=== PATIENT | male | born 1965 | race Caucasian/White ===

== ENCOUNTER 2022-05-04 12:27 | Inpatient (IN) | payer MEDICARE, OTHER, SELFPAY ==
[2022-05-04] VITALS (13 sets, daily range): BP systolic 101–144; BP diastolic 63–89; PULSE 67–122; RESP 14–24; TEMP 36.5–37.1; O2SAT 83–100; BMI 19.6; BMI 21.4
--- NOTE | 2022-05-04 | IR_ITS ---
APPROVED REPORT Patient Location: [facility] Therapist: CYNDI Gamino RT (R) PROCEDURES Emergent pericardiocentesis with placement of pericardial catheter/pigtail in the pericardial space INDICATION Large pericardial effusion, Cardiac tamponade Informed consent was obtained prior to the procedure. COMPLICATIONS NONE Estimated Blood Loss: Less than 10ml TECHNIQUE The chest and abdominal area were sterilely prepped. Anesthesia provided conscious sedation and a large aspiration needle was placed using the subxiphoid approach and directed toward the left. The pericardial space was accessed and a wire was then advanced into the pericardial space. A dilator was used to open the track going from the skin into the pericardial space. The pigtail catheter was then advanced into the pericardium and the tubing was connected to a large gravity fed bag which extracted the bloody dark fluid. Immediately the size of the pericardial effusion decreased with immediate relaxation and improvement in right ventricular compression. At the end of the procedure the pigtail catheter was sutured in place using silk. IMPRESSION Successful pericardiocentesis for cardiac tamponade producing greater than 500 cc of bloody pericardial fluid with a large amount of fluid anticipated still remaining in the pericardial space PLAN 1. 1. Supportive care 2. 2. Submit pericardial fluid for cytology and chemical evaluation Electronically signed by : Omar Hansen MD 05/08/2022 10:54:52
--- NOTE | 2022-05-04 12:32 | HMH.EDSOB ---
ED Disposition Clinical Impression: Pericardial effusion Congestive heart failure Qualifiers: Heart failure type: diastolic Heart failure chronicity: acute Qualified Code(s): I50.31 - Acute diastolic (congestive) heart failure Community acquired pneumonia Qualifiers: Laterality: unspecified laterality Qualified Code(s): J18.9 - Pneumonia, unspecified organism Disposition: Admitted as Observation Condition on Discharge: Serious - Critical Care Critical Care Time: No Attestation: On , the high probability of a clinically significant, sudden or life threatening deterioration of the following system(s) required my full and direct attention, intervention and personal management. The time I documented below is in addition to time spent performing reported procedures but includes the following listed in this critical care notation. Medical Decision Making - Medical Records Medical records reviewed: Yes: I reviewed the patient's medical records. - [place] Inquiry Pt receiving controlled substance: No Vital Signs: 05/04/22 12:30 05/04/22 12:36 05/04/22 13:00 Temperature 98.1 F Temperature Source Axillary Pulse Rate 112 H 110 H Pulse Rate [Right Radial] 113 H Respiratory Rate 20 16 Blood Pressure 117/74 111/82 Blood Pressure [Right Arm] 117/74 Blood Pressure Mean 85 93 Blood Pressure Mean [Right Arm] 88 Blood Pressure Source [Right Arm] Automatic Cuff Blood Pressure Position [Right Arm] Sitting 02 Sat by Pulse Oximetry 83 L 95 100 Oxygen Delivery Method Room Air Nasal Cannula Oxygen Flow Rate (LPM) 2 05/04/22 13:30 05/04/22 14:00 05/04/22 14:22 Temperature Temperature Source Pulse Rate 109 H 102 H 101 H Pulse Rate [Right Radial] Respiratory Rate 16 24 24 Blood Pressure 112/80 101/76 L 103/80 L Blood Pressure [Right Arm] Blood Pressure Mean 90 81 85 Blood Pressure Mean [Right Arm] Blood Pressure Source [Right Arm] Blood Pressure Position [Right Arm] 02 Sat by Pulse Oximetry 96 95 95 Oxygen Delivery Method Nasal Cannula Nasal Cannula Nasal Cannula Oxygen Flow Rate (LPM) 2 2 2 05/04/22 14:30 Temperature Temperature Source Pulse Rate 110 H Pulse Rate [Right Radial] Respiratory Rate 14 Blood Pressure 107/73 L Blood Pressure [Right Arm] Blood Pressure Mean 87 Blood Pressure Mean [Right Arm] Blood Pressure Source [Right Arm] Blood Pressure Position [Right Arm] 02 Sat by Pulse Oximetry 95 Oxygen Delivery Method Nasal Cannula Oxygen Flow Rate (LPM) 2 - Lab Data Lab results reviewed: Yes: I reviewed the patient's lab results. Lab Results 05/04/22 12:38: Specimen Source Right radial, O2 % 2, ABG pH 7.37, ABG pCO2 35.1, ABG pO2 68.3 L, ABG HCO3 20.0 L, ABG Total CO2 21.1 L, ABG O2 Saturation 92, ABG Base Excess -5.3 L, Cesar Test Acceptable 05/04/22 13:23: WBC 18.6 H, RBC 4.13 L, Hgb 13.2 L, Hct 42.6, MCV 103.2 H, MCH 31.9 H, MCHC 30.9 L, RDW 14.0, Plt Count 310, MPV 8.5, Neut % (Auto) 94.6 H, Lymph % (Auto) 1.4 L, [place] % (Auto) 3.4, Eos % (Auto) 0.4, Baso % (Auto) 0.2, Neut # (Auto) 17.6 H, Lymph # (Auto) 0.3 L, [place] # (Auto) 0.6, Eos # (Auto) 0.1, Baso # (Auto) 0.0, Total Counted 100, Neutrophils % (Manual) 96 H, Lymphocytes % (Manual) 1 L, Monocytes % (Manual) 3, Platelet Estimate Normal, Macrocytosis 1+, Acanthocytes (Spur) 2+ 05/04/22 13:23: Sodium 141, Potassium 3.8, Chloride 107, Carbon Dioxide 24, Anion Gap 13.8, BUN 38 H, Creatinine 1.40 H, Estimated Creat Clear 55, Estimated GFR 53 L, Est GFR ( Amer) 64, Glucose 207 H, Calcium 9.2, Total Bilirubin 0.7, AST 42, ALT 42, Alkaline Phosphatase 211 H, Troponin I 0.11 H, NT-Pro-B Natriuret Pep 646 H, Total Protein 6.0 L, Albumin 3.6, Globulin 2.4, Albumin/Globulin Ratio 1.5 05/04/22 13:23: PT 14.0 H, INR 1.26 H, APTT 25.2 05/04/22 13:23: SARS-CoV-2 (PCR) Not detected, Influenza A Untype (PCR) Not detected, Influenza Type B (PCR) Not detected 05/04/22 13:23: Lactate 3.3 H Result diagrams: 05/04/22 1
--- NOTE | 2022-05-04 12:36 | XR_ITS ---
FINAL REPORT CLINICAL HISTORY: Hypoxia, pt states that he has been experiencing a cough and SOA since March. FINDINGS: A single portable view of the chest was obtained. There is cardiomegaly. There is mild pulmonary vascular congestion. The mediastinum is within normal limits. There are bilateral pulmonary opacities consistent with pneumonia or edema. The bony thorax is intact. IMPRESSION: Findings consistent with bilateral pneumonia or edema. Reviewed, Interpreted and Dictated by Keanu Lowe III, MD Transcribed by Qian Ruelas Authenticated and [facility]
--- NOTE | 2022-05-04 12:40 | ECG_ITS ---
APPROVED REPORT Exam: Resting ECG HR:116 bpm ECG Measurements Heart Rate 116 AXES NC 112 P 77 QRSd 92 QRS 91 QT 251 T -29 QTc 320 Conclusion SINUS TACHYCARDIA WITH SHORT NC INTERVAL BORDERLINE RIGHT AXIS DEVIATION [QRS AXIS > 90] NONSPECIFIC T-WAVE ABNORMALITY ABNORMAL ECG UNCONFIRMED REPORT Electronically signed by : Jagdeep Osorio MD 05/04/2022 21:42:47
--- NOTE | 2022-05-04 12:47 | PC.NURSE ---
resp called for G and brandenb
--- NOTE | 2022-05-04 12:50 | PC.NURSE ---
lab and resp both here
[2022-05-04 13:04] LABS: ABG Base Excess -5.3 mmol/L (-2.4-2.3); ABG Oxygen Saturation 92 % (90-100); ABG PCO2 35.1 mmhg (35.0-45.0); ABG PH 7.37 mmol/L (7.35-7.45); ABG PO2 68.3 mmhg (80-100); ABG TCO2 21.1 mmhg (23-27); Oxygen 2 %
--- NOTE | 2022-05-04 13:04 | PC.NURSE ---
Josey Lamas rounded on patient
[2022-05-04 13:05] LABS: Allen's Test ACCEPTABLE; Source Right Radial
[2022-05-04 13:38] LABS: Coronavirus 19, PCR Not Detected (NotDetected); Influenza A, PCR Not Detected (NotDetected); Influenza B, PCR Not Detected (NotDetected)
[2022-05-04 13:43] LABS: Chloride 107 mmol/L (98-107); Potassium 3.8 mmoL/L (3.5-5.1); Sodium 141 mmol/L (136-145)
[2022-05-04 13:44] LABS: Basophils % 0.2 % (0.1-2.0); Eosinophils # 0.1 K/mm3 (0.0-0.4); Eosinophils % 0.4 % (0.1-12.0); Hematocrit 42.6 % (42.0-52.0); Hemoglobin 13.2 g/dL (14.1-18.0); Lymphocytes # 0.3 K/mm3 (0.7-4.5); Lymphocytes % 1.4 % (10-50); Mean Corpuscular HGB Conc 30.9 g/dL (31.8-35.4); Mean Corpuscular Hemoglobin 31.9 pg (27.0-31.2); Mean Corpuscular Volume 103.2 fl (80-94); Mean Platelet Volume 8.5 fl (7.4-10.4); Monocytes # 0.6 K/mm3 (0.1-1.0); Monocytes % 3.4 % (1.7-9.3); Neutrophils # 17.6 K/mm3 (1.8-7.8); Neutrophils % 94.6 % (37.0-80.0); Platelet Count 310 K/mm3 (142-424); Red Blood Count 4.13 M/mm3 (4.60-6.20); White Blood Count 18.6 K/mm3 (4.8-10.8)
[2022-05-04 13:46] LABS: Alanine Aminotransferase 42 U/L (12-78); Albumin Level 3.6 g/dl (3.5-5.0); Albumin/Globulin Ratio 1.5 (1.1-1.8); Alkaline Phosphatase 211 U/L (38-126); Anion Gap 13.8 mEq/L (5-15); Aspartate Amino Transferase 42 U/L (17-59); Bilirubin,Total 0.7 mg/dl (0.2-1.3); Blood Urea Nitrogen 38 mg/dl (9-20); Carbon Dioxide 24 mmol/L (22.0-30.0); Creatinine Clearance Estimated 55 mL/min (50-200); Estimated Glomerular Filt Rate 53 ml/min (>60); GFR (African American) 64 ML/MIN (>60); Globulin 2.4 g/dL (1.3-3.2); MANUAL DIFFERENTIAL MANUAL DIFFERENTIAL (MANUAL DIFF)
[2022-05-04 13:47] LABS: Calcium 9.2 mg/dl (8.4-10.2); Glucose 207 mg/dl (74-100)
[2022-05-04 13:50] LABS: Activated Partial Thrombo Time 25.2 seconds (22.8-30.6); INR 1.26 (0.9-1.1)
[2022-05-04 13:55] LABS: Lymphocytes % 1 % (10-50); Monocytes % 3 % (2-9); NT Pro Brain Natriuretic Pep. 646 pg/mL (0-125); Neutrophils % 96 % (42-76); Total Cells Counted 100
[2022-05-04 13:56] LABS: Macrocytosis 1+
[2022-05-04 13:57] LABS: Acanthocytes 2+; Platelet Estimate Normal
[2022-05-04 13:58] LABS: Troponin I 0.11 ng/ml (0.00-0.034)
--- NOTE | 2022-05-04 14:01 | PC.NURSE ---
has been called. Will call back.
--- NOTE | 2022-05-04 14:11 | PC.NURSE ---
Josey Lamas made patient rounds
--- NOTE | 2022-05-04 14:16 | PC.NURSE ---
on the phone with
[2022-05-04 14:17] LABS: Lactic Acid 3.3 mmol/L (0.7-2.1)
--- NOTE | 2022-05-04 14:27 | CA_ITS ---
APPROVED REPORT EXAM: Comprehensive 2D, Doppler, and color-flow Echocardiogram General Lithographic Worker: Akua Delgado CRT Ht: 6 ft 0 in Wt: 145lbs BSA: 1.86 BP: 112/80 mmHg Indications: Congenital Heart Disease, Shortness of Breath, CHF, COUGH 2D Dimensions LVOT 2.18 cm (M/F) 1.5-2.5 M-Mode Dimensions RVDd 2.57 cm (0.9-2.6) LA Diam 2.39 cm (1.9-4.0) LVDd 4.60 cm (3.5-5.7) Ao Diam 3.95 cm (2.0-3.7) LVDs 2.89 cm (3.5-5.7) IVSd 0.82 cm (0.6-1.1) PWd 1.07 cm (0.6-1.1) EF (Teich) 67.20% FS 37.20% EDV (Teich) 97.30 mL ESV (Teich) 31.90 mL Tricuspid Valve TR P. Velocity 257.00 cm/s RAP Estimate 10.00 mmHg RVSP 36.50 mmHg Left Ventricle Technically limited and difficult study. Left atrium is normal size left ventricle is normal size preserved left ventricular systolic function, estimated ejection fraction 55% with no regional wall motion abnormality. Right Ventricle Right atrium and right ventricle are normal size and contractility, there is diastolic collapse of the right ventricle due to cardiac tamponade. Aortic Valve Aortic valve is grossly normal. Mitral Valve Mitral valve grossly normal there is no mitral regurgitation no mitral stenosis. Tricuspid Valve Tricuspid valve grossly normal, there is no tricuspid stenosis or tricuspid regurgitation. Pulmonic Valve Pulmonic valve is poorly visualized. Great Vessels Aortic root is normal size. Inferior vena cava is not visualized Pericardium Large pericardial effusion with tamponade seen. Conclusion 1. Normal left ventricular size and function. 2. Large pericardial effusion with right ventricular diastolic collapse consistent with tamponade. Electronically signed by : Tl Mcmahon MD 05/04/2022 17:11:38
--- NOTE | 2022-05-04 14:38 | PC.NURSE ---
Cardiology has been made aware of cardiology consult.
--- NOTE | 2022-05-04 14:40 | PC.NURSE ---
notified care management of admission, spoke with maribel.
--- NOTE | 2022-05-04 14:43 | PC.NURSE ---
cardiology TRAP SETTER at [facility]
--- NOTE | 2022-05-04 14:51 | PC.NURSE ---
contacted [facility], request medication list be faxed over on pt. Spoke with Miranda. States their fax machine isn't working at this time. Miranda gave me a verbal list of medications for pt (medications have been updated in pts chart). Also verified with her of pt having NKDA, states that is correct. Notified Miranda that is pt is going to be admitted to the hospital.
--- NOTE | 2022-05-04 14:59 | PC.NURSE ---
Dr. Hansen at
--- NOTE | 2022-05-04 15:12 | HMH.CNCARD ---
History of Present Illness Consult date: 05/04/22 Requesting physician: Ramon Krishna Consult reason: shortness of breath Chief complaint: soa Additional Medical History:: Past Medical Hx: schizophrenia History of present illness: ER note: The patient presents to the emergency department complaining of shortness of breath. The patient's work-up in the emergency department is most consistent with congestive heart failure. The patient does not have a history of congestive heart failure. On chest x-ray he has cardiomegaly with bilateral opacities consistent with pulmonary edema. The patient is afebrile. Nevertheless, the patient has an elevated white blood cell count with an elevated lactate level. Therefore, he will be also covered with antibiotics. Blood cultures are pending. Patient's troponin is also elevated at 0.11. His EKG does not show any acute ischemia. However cardiology will be consulted. I suspect that the patient's elevated troponin has to do with his congestive heart failure. Cardiology note: 57 year old male with past medical hx of schizophrenia presented to ER with caregiver with complaint of increased soa x 2 weeks, worse the last few days with cough. Denies cp. Denies fever. Reports significant weight loss over last year. Current smoker. Upon presentation to ER creatinine 1.40, WBC 18.6, lactic acid elevated to 3.3. Troponin was 0.11, ekg negative for ischemic changes, tachycardia noted. Patient was hypoxic on arrival with sats in the mid to high 80s on room air. Chest xray showed bilateral pneumonia or edema. Patient was given Lasix 40mg IV x 1. Bedside echo revealed large pericardial effusion. Dr. Hansen to bedside for further review of echo. [facility] History Medical History: Reports:: Hyperlipidemia *Have you ever received a pneumonia vaccine?: Yes *Have you received a flu vaccine this season?: Yes Other Surgeries: Yes: No Previous Surgery Amputation: No Fractures: No - *Social History Smoking Status: Current every day smoker Alcohol Intake: never *Occupational Status:: disabled Housing: [facility] Household Members: caregiver *Travel in the last 8 weeks: None Family Hx:: Unable to obtain Meds Home Medications Medication Instructions Recorded Confirmed Type atorvastatin 20 mg tablet 20 mg PO DAILY 05/26/21 05/04/22 History buspirone 10 mg tablet 10 mg PO TID 05/26/21 05/04/22 History clozapine 100 mg tablet 100 mg PO DAILY tab 05/26/21 05/04/22 History cloZAPine [Clozapine] 400 mg PO HS 05/04/22 05/04/22 History Allergies Allergy/AdvReac Type Severity Reaction Status Date / Time No Known Allergies Allergy Unverified 05/26/21 12:59 Exam Vital signs and Labs for Last 24 Hours: Temp Pulse Resp BP Pulse Ox 98.1 F 110 H 14 107/73 L 95 05/04/22 12:30 05/04/22 14:30 05/04/22 14:30 05/04/22 14:30 05/04/22 14:30 Laboratory Results - last 24 hr 05/04/22 12:38: Specimen Source Right radial, O2 % 2, ABG pH 7.37, ABG pCO2 35.1, ABG pO2 68.3 L, ABG HCO3 20.0 L, ABG Total CO2 21.1 L, ABG O2 Saturation 92, ABG Base Excess -5.3 L, Cesar Test Acceptable 05/04/22 13:23: WBC 18.6 H, RBC 4.13 L, Hgb 13.2 L, Hct 42.6, MCV 103.2 H, MCH 31.9 H, MCHC 30.9 L, RDW 14.0, Plt Count 310, MPV 8.5, Neut % (Auto) 94.6 H, Lymph % (Auto) 1.4 L, [place] % (Auto) 3.4, Eos % (Auto) 0.4, Baso % (Auto) 0.2, Neut # (Auto) 17.6 H, Lymph # (Auto) 0.3 L, [place] # (Auto) 0.6, Eos # (Auto) 0.1, Baso # (Auto) 0.0, Total Counted 100, Neutrophils % (Manual) 96 H, Lymphocytes % (Manual) 1 L, Monocytes % (Manual) 3, Platelet Estimate Normal, Macrocytosis 1+, Acanthocytes (Spur) 2+ 05/04/22 13:23: Sodium 141, Potassium 3.8, Chloride 107, Carbon Dioxide 24, Anion Gap 13.8, BUN 38 H, Creatinine 1.40 H, Estimated Creat Clear 55, Estimated GFR 53 L, Est GFR ( Amer) 64, Glucose 207 H, Calcium 9.2, Total Bilirubin 0.7, AST 42, ALT 42, Alkaline Phosphatase 211 H, Troponin I 0.11 H, NT-Pro-B Natriuret Pep 646 H, Total Protein 6.
--- NOTE | 2022-05-04 15:35 | PC.NURSE ---
wolf berrios from label maker, gathering supplies for dr. ledesma for pericardialcentisis. Vascular lab staff has machine at BS awaiting to assist with procedure.
--- NOTE | 2022-05-04 16:11 | PC.NURSE ---
notified steffen house supervisor pt remaining in ER at this time r/t dr. ledesma planning to do procedure on pt in ER.
--- NOTE | 2022-05-04 16:27 | PC.NURSE ---
dr coburn well in room doing procidure
--- NOTE | 2022-05-04 16:51 | PC.NURSE ---
contacted salesperson household appliances r/t pt is finished with procedure, pt was given propofol per anesthesia for procedure. Pt had to be placed on NRB during procedure. Asked if pt would be okay to go to assigned room on second floor or if we should monitor pt in ER for approx 30 min r/t conscious sedation. planting supervisor states would be a good idea to keep pt in ER for approx 30 mins post procedure sedation for monitoring prior to sending pt to [facility]
--- NOTE | 2022-05-04 17:03 | PC.NURSE ---
dr. ledesma gave verbal orders for cytology, LDH, glucose and protein analysis on pericardial fluid. Also stated to contact lab to check about any other standard orders for pericardial fluid . Have spoke with [facility] lab she is going to check on orders and contact me back.
[2022-05-04 18:04] LABS: Reflex Lactic Add Lactic Reflex
--- NOTE | 2022-05-04 18:24 | PC.NURSE ---
Called report to Radha
[2022-05-04 18:52] LABS: Lactic Acid Follow Up (RFLX 1) 1.3 mmol/L (0.7-2.1)
--- NOTE | 2022-05-04 19:11 | HMH.PHAINT ---
clarified home medication list using list from [facility]ait rodrigue[facility]
--- NOTE | 2022-05-04 19:13 | P.CONPHA_ITS ---
[facility] Pharmacy VTE Monitoring - Patient Demographics Admission date: 05/04/22 Report Date: 05/04/22 Time: 19:13 Allergies/Adverse Reactions: Patient Allergies No Known Allergies Allergy (Unverified 05/26/21 12:59) Height: 1.85 m Weight: 73.51 kg Patient Problems: Current Active Problems Congestive heart failure (Acute) Community acquired pneumonia (Acute) Pericardial effusion (Acute) Elevated troponin (Acute) Pericardial effusion (Acute) - VTE Risk Labs: VTE Related Lab Results Hgb 13.2 g/dL (14.1-18.0) L 05/04/22 13:23 Hct 42.6 % (42.0-52.0) 05/04/22 13:23 Plt Count 310 K/mm3 (142-424) 05/04/22 13:23 PT 14.0 seconds (10.1-12.5) H 05/04/22 13:23 INR 1.26 (0.9-1.1) H 05/04/22 13:23 APTT 25.2 seconds (22.8-30.6) 05/04/22 13:23 BUN 38 mg/dl (9-20) H 05/04/22 13:23 Creatinine 1.40 mg/dl (0.66-1.25) H 05/04/22 13:23 Estimated Creat Clear 55 mL/min (50-200) 05/04/22 13:23 Clinical Trial Participant: No - Prophylaxis VTE Prophylaxis Ordered?: Yes Types of VTE Prophylaxis: TEDS Knee High
[2022-05-05] VITALS (14 sets, daily range): BP systolic 104–126; BP diastolic 61–83; PULSE 100–111; RESP 20–28; TEMP 36.3–37.1; O2SAT 87–96; BMI 19.5
--- NOTE | 2022-05-05 04:46 | PC.NURSE ---
Addendum entered by Natasha Black RN 05/05/22 06:43: Pericardial drain output total since arriving to floor has been 450ml. Original Note: Pt has rested well this shift. Pericardial drain remains in place, draining at bedside. Pt has remained sinus tach on heart monitor. Pt is wearing 8L O2 with O2 sat 90-94%. Pt has voiced no c/o this shift. Pt has used the urinal independently.
[2022-05-05 07:00] LABS: Basophils % 0.2 % (0.1-2.0); Eosinophils % 0.2 % (0.1-12.0); Hematocrit 40.7 % (42.0-52.0); Hemoglobin 12.2 g/dL (14.1-18.0); Lymphocytes # 0.7 K/mm3 (0.7-4.5); Lymphocytes % 4.2 % (10-50); Mean Corpuscular Hemoglobin 31.2 pg (27.0-31.2); Mean Platelet Volume 8.1 fl (7.4-10.4); Monocytes % 5.5 % (1.7-9.3); Neutrophils # 15.8 K/mm3 (1.8-7.8); Neutrophils % 89.9 % (37.0-80.0); Platelet Count 285 K/mm3 (142-424); Red Blood Count 3.92 M/mm3 (4.60-6.20); Red Cell Distribution Width 13.9 % (11.5-17.5); White Blood Count 17.6 K/mm3 (4.8-10.8)
[2022-05-05 07:08] LABS: Chloride 109 mmol/L (98-107)
[2022-05-05 07:09] LABS: Potassium 3.5 mmoL/L (3.5-5.1); Sodium 140 mmol/L (136-145)
[2022-05-05 07:12] LABS: Anion Gap 5.5 mEq/L (5-15); Blood Urea Nitrogen 30 mg/dl (9-20); Calcium 8.3 mg/dl (8.4-10.2); Carbon Dioxide 29 mmol/L (22.0-30.0); Creatinine Clearance Estimated 79 mL/min (50-200); Estimated Glomerular Filt Rate 78 ml/min (>60); GFR (African American) 94 ML/MIN (>60); Glucose 100 mg/dl (74-100)
[2022-05-05 07:14] LABS: MANUAL DIFFERENTIAL MANUAL DIFFERENTIAL (MANUAL DIFF)
--- NOTE | 2022-05-05 07:51 | HMH.PHAINT ---
MEDICATION RECONCILIATION COMPLETED ON PATIENT USING EXTERNAL FILL HISTORY FROM PHARMACY. -JASMINE NOEL, AMARILISD
[2022-05-05 08:21] LABS: Lymphocytes % 4 % (10-50); Monocytes % 2 % (2-9); Neutrophils % 94 % (42-76); Total Cells Counted 100
[2022-05-05 08:24] LABS: Macrocytosis 1+; Platelet Estimate Normal
[2022-05-05 08:25] LABS: Acanthocytes 1+
--- NOTE | 2022-05-05 09:14 | HMH.HP ---
*Admission Date: 05/04/22 *Chief complaint: Shortness of breath *History of present illness: 57-year-old male patient presents to the emergency room with his aunt from a local personal[facility]. He reports patient has been short of breath all day. He also reports a weight loss over the last couple years, is unable to give a close approximation but just reports a loss of weight. Patient is a longtime smoker and has a history of congestive heart failure. Heart rate 112, white blood cell count 18.5, lactate 3.3, bilateral pneumonia On echocardiogram a pericardial effusion was revealed and a pericardial drain was placed there has been approximately 500 cc out from drain during the night, 57-year-old male patient sitting in bed resting quietly nasal cannula at 8 L, and is in room. He reports that he has lost a significant amount of weight in the last couple years she is unsure of the total amount. Patient reports he is a smoker but does not answer other questions appropriately [facility] History I have reviewed the patient's past medical history: Yes Medical History: Reports:: Congenital Heart Disease, Hyperlipidemia Denies:: Diabetes Mellitus Type 1, Diabetes Mellitus Type 2, MRSA *Have you ever received a pneumonia vaccine?: Yes *Have you received a flu vaccine this season?: Yes Other Surgeries: Yes: No Previous Surgery Amputation: No Fractures: No - *Social History Smoking Status: Current every day smoker # Packs/Day (cigarettes): 1 Alcohol Intake: never *Occupational Status:: unemployed, disabled Housing: assisted living facility Household Members: caregiver *Travel in the last 8 weeks: None Family Hx:: No significant family history Review of Systems - Review of Systems Review of systems:: unable to obtain Patient is very confused and unable answer questions at present time Meds Home Medications Medication Instructions Recorded Confirmed Type atorvastatin 20 mg tablet 20 mg PO DAILY 05/26/21 05/04/22 History buspirone 10 mg tablet 10 mg PO TID 05/26/21 05/04/22 History clozapine 100 mg tablet 100 mg PO DAILY tab 05/26/21 05/04/22 History cloZAPine [Clozapine] 400 mg PO HS 05/04/22 05/04/22 History Allergies Allergy/AdvReac Type Severity Reaction Status Date / Time No Known Allergies Allergy Unverified 05/26/21 12:59 Exam Vital signs and Labs for Last 24 Hours: Temp Pulse Resp BP Pulse Ox 98.1 F 104 H 26 H 104/63 L 96 05/05/22 16:00 05/05/22 16:14 05/05/22 16:00 05/05/22 16:00 05/05/22 16:00 Laboratory Results - last 24 hr 05/04/22 18:33: Lactate 1.3 05/05/22 06:31: WBC 17.6 H, RBC 3.92 L, Hgb 12.2 L, Hct 40.7 L, MCV 104.0 H, MCH 31.2, MCHC 30.0 L, RDW 13.9, Plt Count 285, MPV 8.1, Neut % (Auto) 89.9 H, Lymph % (Auto) 4.2 L, [place] % (Auto) 5.5, Eos % (Auto) 0.2, Baso % (Auto) 0.2, Neut # (Auto) 15.8 H, Lymph # (Auto) 0.7, [place] # (Auto) 1.0, Eos # (Auto) 0.0, Baso # (Auto) 0.0, Total Counted 100, Neutrophils % (Manual) 94 H, Lymphocytes % (Manual) 4 L, Monocytes % (Manual) 2, Platelet Estimate Normal, Macrocytosis 1+, Acanthocytes (Spur) 1+ 05/05/22 06:31: Sodium 140, Potassium 3.5, Chloride 109 H, Carbon Dioxide 29, Anion Gap 5.5, BUN 30 H, Creatinine 1.00 D, Estimated Creat Clear 79, Estimated GFR 78, Est GFR ( Amer) 94 D, Glucose 100 D, Calcium 8.3 L I & O for Last 24 hours: Intake & Output 05/02/22 05/03/22 05/04/22 05/05/22 23:59 23:59 23:59 23:59 Intake Total 1040 / 1040 Output Total 2350 / 2350 Balance -1310 / -1310 Weight 162 lb 1 oz 146 lb 15.715 oz - Constitutional mild distress, chronically ill appearing - *Routine HEENT Exam Head: Present: normocephalic Eye: Present: EOMI ENT: Present: mucous membranes dry - *Routine Neck Exam Present: trachea midline. Absent: tracheal deviation - *Routine Respiratory Exam Present: rhonchi, crackles. Absent: accessory muscle use - *Routine Cardiovascular Exam Present: RRR - *Routine Abdominal Exam
--- NOTE | 2022-05-05 09:16 | PC.NURSE ---
morning rounds done with md. patient sister at bedside. she is voicing concerns of patients weight loss over last couple months. md plans to gt ct of chest, spoke with office cleaner about diet. patient resting in bed
--- NOTE | 2022-05-05 09:18 | HMH.ACPN2 ---
Internal Medicine - PN: Subj *Date: 05/05/22 *Time: 09:19 Exam Vital signs and Labs for Last 24 Hours: Temp Pulse Resp BP Pulse Ox 98.0 F 107 H 24 115/83 92 L 05/05/22 08:00 05/05/22 08:00 05/05/22 08:00 05/05/22 08:00 05/05/22 08:00 Laboratory Results - last 24 hr 05/04/22 12:38: Specimen Source Right radial, O2 % 2, ABG pH 7.37, ABG pCO2 35.1, ABG pO2 68.3 L, ABG HCO3 20.0 L, ABG Total CO2 21.1 L, ABG O2 Saturation 92, ABG Base Excess -5.3 L, Cesar Test Acceptable 05/04/22 13:23: WBC 18.6 H, RBC 4.13 L, Hgb 13.2 L, Hct 42.6, MCV 103.2 H, MCH 31.9 H, MCHC 30.9 L, RDW 14.0, Plt Count 310, MPV 8.5, Neut % (Auto) 94.6 H, Lymph % (Auto) 1.4 L, [place] % (Auto) 3.4, Eos % (Auto) 0.4, Baso % (Auto) 0.2, Neut # (Auto) 17.6 H, Lymph # (Auto) 0.3 L, [place] # (Auto) 0.6, Eos # (Auto) 0.1, Baso # (Auto) 0.0, Total Counted 100, Neutrophils % (Manual) 96 H, Lymphocytes % (Manual) 1 L, Monocytes % (Manual) 3, Platelet Estimate Normal, Macrocytosis 1+, Acanthocytes (Spur) 2+ 05/04/22 13:23: Sodium 141, Potassium 3.8, Chloride 107, Carbon Dioxide 24, Anion Gap 13.8, BUN 38 H, Creatinine 1.40 H, Estimated Creat Clear 55, Estimated GFR 53 L, Est GFR ( Amer) 64, Glucose 207 H, Calcium 9.2, Total Bilirubin 0.7, AST 42, ALT 42, Alkaline Phosphatase 211 H, Troponin I 0.11 H, NT-Pro-B Natriuret Pep 646 H, Total Protein 6.0 L, Albumin 3.6, Globulin 2.4, Albumin/Globulin Ratio 1.5 06/27/22 13:23: PT 14.0 H, INR 1.26 H, APTT 25.2 05/04/22 13:23: SARS-CoV-2 (PCR) Not detected, Influenza A Untype (PCR) Not detected, Influenza Type B (PCR) Not detected 05/04/22 13:23: Lactate 3.3 H 05/04/22 15:38: Troponin I 0.10 H 05/04/22 18:33: Lactate 1.3 05/05/22 06:31: WBC 17.6 H, RBC 3.92 L, Hgb 12.2 L, Hct 40.7 L, MCV 104.0 H, MCH 31.2, MCHC 30.0 L, RDW 13.9, Plt Count 285, MPV 8.1, Neut % (Auto) 89.9 H, Lymph % (Auto) 4.2 L, [place] % (Auto) 5.5, Eos % (Auto) 0.2, Baso % (Auto) 0.2, Neut # (Auto) 15.8 H, Lymph # (Auto) 0.7, [place] # (Auto) 1.0, Eos # (Auto) 0.0, Baso # (Auto) 0.0, Total Counted 100, Neutrophils % (Manual) 94 H, Lymphocytes % (Manual) 4 L, Monocytes % (Manual) 2, Platelet Estimate Normal, Macrocytosis 1+, Acanthocytes (Spur) 1+ 05/05/22 06:31: Sodium 140, Potassium 3.5, Chloride 109 H, Carbon Dioxide 29, Anion Gap 5.5, BUN 30 H, Creatinine 1.00 D, Estimated Creat Clear 79, Estimated GFR 78, Est GFR ( Amer) 94 D, Glucose 100 D, Calcium 8.3 L I & O for Last 24 hours: Intake & Output 05/02/22 05/03/22 05/04/22 05/05/22 23:59 23:59 23:59 23:59 Intake Total 560 / 560 Output Total 1950 / 1950 Balance -1390 / -1390 Weight 162 lb 1 oz 147 lb Assessment and Plan (1) Pericardial effusion Status: Acute Category: Medical Code(s): I31.3 - Pericardial effusion (noninflammatory) (2) Elevated troponin Status: Acute Category: Medical Code(s): R77.8 - Other specified abnormalities of plasma proteins
--- NOTE | 2022-05-05 09:21 | CT_ITS ---
FINAL REPORT TECHNIQUE: Axial images were obtained from the lung apex to the mid abdomen by computed tomography. Coronal reformatted images were obtained. This study was performed with techniques to keep radiation doses as low as reasonably achievable, (ALARA). Individualized dose reduction techniques using automated exposure control or adjustment of mA and/or kV according to the patient''s size were employed. CLINICAL HISTORY: SOA, new CHF, pericardial drain FINDINGS: There is no axillary adenopathy. There is no hilar adenopathy. There are multiple mildly enlarged mediastinal lymph nodes. Heart size is normal. There is a moderate pericardial effusion with a pericardial drain present. There are small bilateral pleural effusions, right greater than left. Limited images of the upper abdomen demonstrate bilateral adrenal gland enlargement favoring adenomas. On the lung window images, there are moderate changes of emphysema. There are bilateral pulmonary opacities, left greater than right, consistent with bilateral pneumonia. There are multiple right lower lobe nodules of uncertain etiology measuring up to 7 mm, favor inflammatory. On the bone window images there are numerous small sclerotic foci in the spine of uncertain ideology but worrisome for sclerotic bony metastatic disease. IMPRESSION: Bilateral, left greater than right, pneumonia. Multiple right lower lobe nodules of uncertain etiology. Recommend follow-up chest CT in 3-6 months. Moderate pericardial effusion with pericardial drain present. Numerous small sclerotic foci in the spine, worrisome for sclerotic bony metastatic disease. Reviewed, Interpreted and Dictated by Keanu Lowe III, MD Transcribed by Qian Ruelas Authenticated and [facility]
--- NOTE | 2022-05-05 11:27 | HMH.PNCARD ---
Subjective Date: 05/05/22 Time: 11:27 Principal diagnosis: pericardial effusion with tamponade Interval history: S/p drain placement, 500ml of bloody drainage out over the evening. Reports feeling better, soa and chest discomfort have improved. cytology pending Exam Vital signs and Labs for Last 24 Hours: Temp Pulse Resp BP Pulse Ox 98.0 F 107 H 24 115/83 92 L 05/05/22 08:00 05/05/22 08:00 05/05/22 08:00 05/05/22 08:00 05/05/22 08:00 Laboratory Results - last 24 hr 05/04/22 12:38: Specimen Source Right radial, O2 % 2, ABG pH 7.37, ABG pCO2 35.1, ABG pO2 68.3 L, ABG HCO3 20.0 L, ABG Total CO2 21.1 L, ABG O2 Saturation 92, ABG Base Excess -5.3 L, Cesar Test Acceptable 05/04/22 13:23: WBC 18.6 H, RBC 4.13 L, Hgb 13.2 L, Hct 42.6, MCV 103.2 H, MCH 31.9 H, MCHC 30.9 L, RDW 14.0, Plt Count 310, MPV 8.5, Neut % (Auto) 94.6 H, Lymph % (Auto) 1.4 L, [place] % (Auto) 3.4, Eos % (Auto) 0.4, Baso % (Auto) 0.2, Neut # (Auto) 17.6 H, Lymph # (Auto) 0.3 L, [place] # (Auto) 0.6, Eos # (Auto) 0.1, Baso # (Auto) 0.0, Total Counted 100, Neutrophils % (Manual) 96 H, Lymphocytes % (Manual) 1 L, Monocytes % (Manual) 3, Platelet Estimate Normal, Macrocytosis 1+, Acanthocytes (Spur) 2+ 05/04/22 13:23: Sodium 141, Potassium 3.8, Chloride 107, Carbon Dioxide 24, Anion Gap 13.8, BUN 38 H, Creatinine 1.40 H, Estimated Creat Clear 55, Estimated GFR 53 L, Est GFR ( Amer) 64, Glucose 207 H, Calcium 9.2, Total Bilirubin 0.7, AST 42, ALT 42, Alkaline Phosphatase 211 H, Troponin I 0.11 H, NT-Pro-B Natriuret Pep 646 H, Total Protein 6.0 L, Albumin 3.6, Globulin 2.4, Albumin/Globulin Ratio 1.5 05/04/22 13:23: PT 14.0 H, INR 1.26 H, APTT 25.2 05/04/22 13:23: SARS-CoV-2 (PCR) Not detected, Influenza A Untype (PCR) Not detected, Influenza Type B (PCR) Not detected 05/04/22 13:23: Lactate 3.3 H 05/04/22 15:38: Troponin I 0.10 H 05/04/22 18:33: Lactate 1.3 05/05/22 06:31: WBC 17.6 H, RBC 3.92 L, Hgb 12.2 L, Hct 40.7 L, MCV 104.0 H, MCH 31.2, MCHC 30.0 L, RDW 13.9, Plt Count 285, MPV 8.1, Neut % (Auto) 89.9 H, Lymph % (Auto) 4.2 L, [place] % (Auto) 5.5, Eos % (Auto) 0.2, Baso % (Auto) 0.2, Neut # (Auto) 15.8 H, Lymph # (Auto) 0.7, [place] # (Auto) 1.0, Eos # (Auto) 0.0, Baso # (Auto) 0.0, Total Counted 100, Neutrophils % (Manual) 94 H, Lymphocytes % (Manual) 4 L, Monocytes % (Manual) 2, Platelet Estimate Normal, Macrocytosis 1+, Acanthocytes (Spur) 1+ 05/05/22 06:31: Sodium 140, Potassium 3.5, Chloride 109 H, Carbon Dioxide 29, Anion Gap 5.5, BUN 30 H, Creatinine 1.00 D, Estimated Creat Clear 79, Estimated GFR 78, Est GFR ( Amer) 94 D, Glucose 100 D, Calcium 8.3 L I & O for Last 24 hours: Intake & Output 05/02/22 05/03/22 05/04/22 05/05/22 23:59 23:59 23:59 23:59 Intake Total 560 / 560 Output Total 1950 / 1950 Balance -1390 / -1390 Weight 162 lb 1 oz 147 lb - *Routine Respiratory Exam Present: crackles - *Routine Cardiovascular Exam Present: RRR - *Routine Extremities Exam Absent: cyanosis, clubbing, edema Progress Note: A&P (1) Pericardial effusion Status: Acute (2) Elevated troponin Status: Acute Assessment and Plan for All Diagnoses:: Pericardial Effusion -s/p drainage, 500mls out over night. cytology pending -EF normal -Continue drainage -plan for repeat echo in next few days Acute hypoxic respiratory failure- resolved. -probably multifactoral- Effusion, pneumonia, hx of smoker -Pulmonary consult Myocardial Injury -In the presence of acute illness and pericardial effusion -Not NSTEMI CV summary 05/05-Doing well. continue drainage for pericardial effusion until volume of output decreases.
--- NOTE | 2022-05-05 12:05 | PC.NURSE ---
ROUNDED ON PATIENT. HE IS SITTING UP IN BED. ASSISTED WITH UNTANGLING WIRES AT THIS TIME.HE HAS NO COMPLAINTS AND STATES HE FEELS OKAY. FAMILY HAS LEFT. PATIENT SEEMS TO HAVE A HARDER TIME COMPREHENDING TEACHINGS. ENCOURAGED TO RING OUT NEEDED.
--- NOTE | 2022-05-05 14:53 | CT_ITS ---
FINAL REPORT CLINICAL HISTORY: Nodules on CT Chest FINDINGS: Axial CT images of the cervical spine were obtained without contrast. Sagittal and coronal reformatted images were also obtained. This study was performed with techniques to keep radiation doses as low as reasonably achievable (ALARA). Individualized dose reduction techniques using automated exposure control or adjustment of mA and/or kV according to the patient's size were employed. There is no evidence of fracture or dislocation. Mild degenerative changes are present. There are multiple sclerotic foci consistent with bony metastatic disease. There is multilevel mild neural foraminal narrowing. There is mild central canal stenosis. IMPRESSION: Findings consistent with bony metastatic disease. Reviewed, Interpreted and Dictated by Keanu Lowe III, MD Transcribed by Lisha Moscoso Authenticated and [facility]
--- NOTE | 2022-05-05 14:53 | CT_ITS ---
FINAL REPORT CLINICAL HISTORY: Nodules on CT Chest FINDINGS: Axial imaging of the lumbar spine was obtained without contrast. Sagittal and coronal reformatted images were also obtained and reviewed.This study was performed with techniques to keep radiation doses as low as reasonably achievable (ALARA). Individualized dose reduction techniques using automated exposure control or adjustment of mA and/or kV according to the patient's size were employed. There is no fracture. Mild multilevel degenerative changes are present. There are multiple annular bulges. There is multilevel mild neural foraminal narrowing. There is no evidence of canal stenosis. There are multilevel sclerotic foci consistent with bony metastatic disease. IMPRESSION: Findings consistent with bony metastatic disease. Reviewed, Interpreted and Dictated by Keanu Lowe III, MD Transcribed by Lisha Moscoso Authenticated and [facility]
--- NOTE | 2022-05-05 14:53 | CT_ITS ---
FINAL REPORT CLINICAL HISTORY: Nodules on CT Chest FINDINGS: Axial CT images of the thoracic spine were obtained without contrast. Sagittal and coronal reformatted images were also obtained. This study was performed with techniques to keep radiation doses as low as reasonably achievable (ALARA). Individualized dose reduction techniques using automated exposure control or adjustment of mA and/or kV according to the patient's size were employed. There is no evidence of fracture. There is multilevel mild degenerative change with osteophytes. There are multiple sclerotic foci consistent with bony metastatic disease. IMPRESSION: Bony metastatic disease. Reviewed, Interpreted and Dictated by Keanu Lowe III, MD Transcribed by Lisha Moscoso Authenticated and [facility]
--- NOTE | 2022-05-05 14:54 | CT_ITS ---
FINAL REPORT TECHNIQUE: Axial images through the abdomen and pelvis were performed without contrast. This study was performed with techniques to keep radiation doses as low as reasonably achievable, (ALARA). Individualized dose reduction techniques using automated exposure control or adjustment of mA and/or kV according to the patient's size were employed. CLINICAL HISTORY: Nodules FINDINGS: ABDOMEN: There are small pleural effusions. There are bibasilar opacities worrisome for pneumonia, left greater than right. There is a moderate pericardial effusion with pericardial drain. There are small nodules in the right lung base. The heart size is normal. Limited images of the liver are unremarkable. The spleen is normal. No adrenal mass is identified. The aorta is normal in caliber. There is no significant free fluid or adenopathy. There is no nephrolithiasis. There is no hydronephrosis. PELVIS: The appendix is not identified. The urinary bladder is unremarkable. There is a small amount of pelvic free fluid, likely reactive. The prostate is slightly enlarged. There are numerous sclerotic lesions in the bony skeleton and a 30 mm lytic focus in the left iliac wing consistent with widespread bony metastatic disease. IMPRESSION: Widespread bony metastatic disease. Small amount of pelvic free fluid, likely reactive. Reviewed, Interpreted and Dictated by Keanu Lowe III, MD Transcribed by Lisha Moscoso Authenticated and [facility]
--- NOTE | 2022-05-05 16:23 | PC.NURSE ---
PT IS RESTING IN BED. NO COMPLAINTS OF DISCOMFORT HOWEVER PT IS VERY ILL APPEARING. PT HAS BEEN SOA T/O THE SHIFT. O2 SATURATION MAINTAINS 95-99% ON 8 L NC. PT IS A MOUTH BREATHER SO HE IS MORE COMFORTABLE WITH CANNULA IN THE MOUTH. PERICARDIAL DRAIN NOTED. 50 ML'S OF DRAINAGE THIS SHIFT. DRESSING TO THE INSERTION SITE WAS REINFORCED X1 THIS SHIFT. LUNG SOUNDS DIMINISHED WITH SCATTERED WHEEZES. ABDOMEN SOFT/NON TENDER WITH HYPOACTIVE BOWEL SOUNDS. WILL CONTINUE TO MONITOR.
[2022-05-06] VITALS (11 sets, daily range): BP systolic 98–133; BP diastolic 46–67; PULSE 72–115; RESP 20–24; TEMP 36.3–36.8; O2SAT 90–97; BMI 19.5
--- NOTE | 2022-05-06 04:33 | PC.NURSE ---
Patient has rested most of this shift. Pericardial drain remains in place with no more output in drainage bag from beginning of shift. Reinforced dressing on drain site x1 this shift. Pt remains wearing O2 in mouth on 6L NC with O2 sats >90%. Pt has voiced no concerns this shift. Pt has used urinal independently. Bed alarm on for safety.
[2022-05-06 07:48] LABS: Eosinophils % 0.3 % (0.1-12.0); Hematocrit 38.1 % (42.0-52.0); Hemoglobin 12.6 g/dL (14.1-18.0); Lymphocytes # 0.3 K/mm3 (0.7-4.5); Mean Corpuscular Hemoglobin 30.5 pg (27.0-31.2); Mean Corpuscular Volume 92.7 fl (80-94); Mean Platelet Volume 7.7 fl (7.4-10.4); Monocytes # 0.9 K/mm3 (0.1-1.0); Monocytes % 5.3 % (1.7-9.3); Neutrophils # 15.1 K/mm3 (1.8-7.8); Neutrophils % 92.4 % (37.0-80.0); Platelet Count 278 K/mm3 (142-424); Red Blood Count 4.11 M/mm3 (4.60-6.20); Red Cell Distribution Width 13.5 % (11.5-17.5); White Blood Count 16.4 K/mm3 (4.8-10.8)
[2022-05-06 07:50] LABS: MANUAL DIFFERENTIAL MANUAL DIFFERENTIAL (MANUAL DIFF)
[2022-05-06 07:51] LABS: Chloride 106 mmol/L (98-107); Potassium 4.2 mmoL/L (3.5-5.1); Sodium 137 mmol/L (136-145)
[2022-05-06 07:54] LABS: Anion Gap 6.2 mEq/L (5-15); Blood Urea Nitrogen 24 mg/dl (9-20); Calcium 8.5 mg/dl (8.4-10.2); Carbon Dioxide 29 mmol/L (22.0-30.0); Creatinine Clearance Estimated 98 mL/min (50-200); Estimated Glomerular Filt Rate 100 ml/min (>60); GFR (African American) 121 ML/MIN (>60); Glucose 142 mg/dl (74-100)
--- NOTE | 2022-05-06 08:04 | CA_ITS ---
APPROVED REPORT EXAM: Comprehensive 2D, Doppler, and color-flow Echocardiogram Point Of Care Technician: Candy Cespedes RVT Ht: 6 ft 0 in Wt: 147lbs BSA: 1.87 BP: 115/83 mmHg Indications: F/U PERICARDIAL EFFUSION S/P PERICARDIOCENTESIS,PT HAS DRAIN IN PLACE-NO OUTPUT SINCE YESTERDAY MORNING,SOA TDS-LIMITED WINDOW R/T DRESSING COVERING DRAIN,PT SNORING 2D Dimensions IVSd 1.27 cm M: 0.6-1.2 LVEF (Visual) 78.60 % PWd 0.79 cm M: 0.6 - 1.2 LVDd 3.98 cm M: 4.2 - 5.9 LVDs 2.12 cm M: 2.5 - 4.0 LVOT 2.27 cm (M/F) 1.5-2.5 M-Mode Dimensions LA Diam 3.30 cm (1.9-4.0) Ao Diam 3.26 cm (2.0-3.7) Conclusion 1. Limited echocardiogram to assess pericardial effusion after pericardiocentesis, this study is suboptimal for assessing residual pericardial effusion, subcostal views were not obtained. 2. A repeat study with better technique and subcostal views is recommended. Electronically signed by : Tl Mcmahon MD 05/06/2022 20:02:49
--- NOTE | 2022-05-06 08:19 | HMH.PNCARD ---
Subjective Date: 05/06/22 Time: 08:00 Principal diagnosis: pericardial effusion with tamponade Interval history: Denies chest pain or soa, drainage has slowed, has only had and additional 50mls of output. Exam Vital signs and Labs for Last 24 Hours: Temp Pulse Resp BP Pulse Ox 97.8 F 106 H 20 110/65 92 L 05/06/22 03:54 05/06/22 06:09 05/06/22 03:54 05/06/22 03:54 05/06/22 06:09 Laboratory Results - last 24 hr 05/05/22 06:31: Total Counted 100, Neutrophils % (Manual) 94 H, Lymphocytes % (Manual) 4 L, Monocytes % (Manual) 2, Platelet Estimate Normal, Macrocytosis 1+, Acanthocytes (Spur) 1+ 05/06/22 07:35: WBC 16.4 H, RBC 4.11 L, Hgb 12.6 L, Hct 38.1 L, MCV 92.7, MCH 30.5, MCHC 33.0, RDW 13.5, Plt Count 278, MPV 7.7, Neut % (Auto) 92.4 H, Lymph % (Auto) 2.0 L, [place] % (Auto) 5.3, Eos % (Auto) 0.3, Baso % (Auto) 0.0 L, Neut # (Auto) 15.1 H, Lymph # (Auto) 0.3 L, [place] # (Auto) 0.9, Eos # (Auto) 0.0, Baso # (Auto) 0.0 05/06/22 07:35: Sodium 137, Potassium 4.2, Chloride 106, Carbon Dioxide 29, Anion Gap 6.2, BUN 24 H, Creatinine 0.80, Estimated Creat Clear 98, Estimated GFR 100, Est GFR ( Amer) 121 D, Glucose 142 H, Calcium 8.5 I & O for Last 24 hours: Intake & Output 05/03/22 05/04/22 05/05/22 05/06/22 23:59 23:59 23:59 23:59 Intake Total 1040 / 1040 Output Total 2400 / 2400 200 / 200 Balance -1360 / -1360 -200 / -200 Weight 162 lb 1 oz 146 lb 15.715 oz 147 lb - *Routine Respiratory Exam Present: CTA bilaterally - *Routine Cardiovascular Exam Present: RRR - *Routine Extremities Exam Absent: cyanosis, clubbing, edema - *Routine Neurological Exam Present: alert, normal reflexes Progress Note: A&P (1) Pericardial effusion Status: Acute (2) Elevated troponin Status: Acute (3) Congestive heart failure Status: Acute (4) Community acquired pneumonia Status: Acute (5) Severe sepsis with acute organ dysfunction Status: Acute Assessment and Plan for All Diagnoses:: Pericardial Effusion -s/p drainage slowed. cytology pending -EF normal -Repeat limited echo today. Plan to remove drain today. Acute hypoxic respiratory failure- resolved. -probably multifactoral- Effusion, pneumonia, hx of smoker -Pulmonary consult Myocardial Injury -In the presence of acute illness and pericardial effusion -Not NSTEMI 05/06 summary: repeat limited echo, drain removal planned for today.
--- NOTE | 2022-05-06 09:17 | CT_ITS ---
FINAL REPORT CLINICAL HISTORY: Bony mets spine FINDINGS: Axial images of the head were obtained without contrast. Coronal reformatted images were also obtained.This study was performed with techniques to keep radiation doses as low as reasonably achievable (ALARA). Individualized dose reduction techniques using automated exposure control or adjustment of mA and/or kV according to the patient's size were employed. There is no evidence of intracranial hemorrhage. There is a low-attenuation area in the left temporal lobe, may represent an acute or subacute infarct or mass with surrounding edema. The ventricular size is within normal limits. There is no evidence of shift of the midline structures. No abnormal extra axial fluid collection is identified. No skull abnormality is seen on the bone window images. There is a retention cyst or polyp in the right maxillary sinus. IMPRESSION: Acute or subacute infarct in the left temporal lobe versus a mass. Recommend MRI with and without contrast for further evaluation. Reviewed, Interpreted and Dictated by Keanu Lowe III, MD Transcribed by Lisha Moscoso Authenticated and [facility]
--- NOTE | 2022-05-06 09:20 | HMH.ACPN2 ---
Internal Medicine - PN: Subj *Date: 05/06/22 *Time: 13:09 Interval history: 57-year-old male patient sitting up in bed, pericardial drain intact with very little to scant drainage overnight. Patient reports he feels a little better today. Aunt is in room. Long discussion with patient over bony metastatic cancer and spine, all questions answered. Explained we will need to do further testing, both are in agreement. Exam Vital signs and Labs for Last 24 Hours: Temp Pulse Resp BP Pulse Ox 97.8 F 106 H 20 110/65 92 L 05/06/22 03:54 05/06/22 06:09 05/06/22 03:54 05/06/22 03:54 05/06/22 06:09 Laboratory Results - last 24 hr 05/06/22 07:35: WBC 16.4 H, RBC 4.11 L, Hgb 12.6 L, Hct 38.1 L, MCV 92.7, MCH 30.5, MCHC 33.0, RDW 13.5, Plt Count 278, MPV 7.7, Neut % (Auto) 92.4 H, Lymph % (Auto) 2.0 L, [place] % (Auto) 5.3, Eos % (Auto) 0.3, Baso % (Auto) 0.0 L, Neut # (Auto) 15.1 H, Lymph # (Auto) 0.3 L, [place] # (Auto) 0.9, Eos # (Auto) 0.0, Baso # (Auto) 0.0 05/06/22 07:35: Sodium 137, Potassium 4.2, Chloride 106, Carbon Dioxide 29, Anion Gap 6.2, BUN 24 H, Creatinine 0.80, Estimated Creat Clear 98, Estimated GFR 100, Est GFR ( Amer) 121 D, Glucose 142 H, Calcium 8.5 05/06/22 07:35: PSA Screen 1.0 I & O for Last 24 hours: Intake & Output 05/03/22 05/04/22 05/05/22 05/06/22 23:59 23:59 23:59 23:59 Intake Total 1040 / 1040 Output Total 2400 / 2400 200 / 200 Balance -1360 / -1360 -200 / -200 Weight 162 lb 1 oz 146 lb 15.715 oz 147 lb - Constitutional no acute distress, chronically ill appearing - *Routine HEENT Exam Head: Present: normocephalic Eye: Present: EOMI ENT: Present: mucous membranes moist - *Routine Neck Exam Present: trachea midline. Absent: tracheal deviation - *Routine Respiratory Exam Present: rhonchi, wheezes. Absent: accessory muscle use - *Routine Cardiovascular Exam Present: RRR - *Routine Abdominal Exam Present: soft, normoactive bowel sounds. Absent: tenderness, firm - *Routine Extremities Exam Present: full ROM, pulses intact. Absent: cyanosis, clubbing, edema - *Routine Skin Exam Present: intact, dry. Absent: cyanosis, erythema Comments: Pericardial drain lower midline chest - *Routine Neurological Exam Present: alert, altered mental status - Routine Psychiatric Exam Present: unable to assess Assessment and Plan (1) Pericardial effusion Status: Acute Category: Medical Code(s): I31.3 - Pericardial effusion (noninflammatory) (2) Elevated troponin Status: Acute Category: Medical Code(s): R77.8 - Other specified abnormalities of plasma proteins (3) Congestive heart failure Status: Acute Qualifiers: Heart failure type: diastolic Heart failure chronicity: acute Qualified Code(s): I50.31 - Acute diastolic (congestive) heart failure Category: Medical Code(s): I50.9 - Heart failure, unspecified (4) Community acquired pneumonia Status: Acute Qualifiers: Laterality: unspecified laterality Qualified Code(s): J18.9 - Pneumonia, unspecified organism Category: Medical Code(s): J18.9 - Pneumonia, unspecified organism (5) Severe sepsis with acute organ dysfunction Status: Acute Category: Medical Code(s): A41.9 - Sepsis, unspecified organism; R65.20 - Severe sepsis without septic shock - Assessment and plan all Dx Assessment and Plan for all problems:: Rounded with Dr. Merchant, all orders per Dr. Merchant: 1. CT head
[2022-05-06 10:11] LABS: Eosinophils % 1 % (0-3); Lymphocytes % 1 % (10-50); Monocytes % 2 % (2-9); Neutrophils % 96 % (42-76); Total Cells Counted 100
[2022-05-06 10:12] LABS: Acanthocytes 1+; Platelet Estimate Normal
--- NOTE | 2022-05-06 10:18 | PC.NURSE ---
rounded on patient. patient is resting soundly at this time but aunt is at bedside. she feels she has a good understanding of current diagnosis and plan of care. has spoken with social service worker which she said has helped as well. no concerns in regards to meds. did ask once his pericardial drain was removed if he could sit up to chairs, as well as requesting a nicotine patch. no complaints or needs voiced. encouraged to ring out with any concerns or questions
--- NOTE | 2022-05-06 10:22 | PC.NURSE ---
Addendum entered by Estela Schwarz RN 05/06/22 17:33: PT IS SITTING UP IN THE CHAIR EATING DINNER. O2 SATURATION 93-95% ON 4 L NC. Addendum entered by Estela Schwarz RN 05/06/22 15:22: PT IS SITTING UP IN THE CHAIR. Original Note: PT IS RESTING IN BED. PT HAS NOT COMPLAINED OF ANY DISCOMFORT OR SOA. HOWEVER PT IS VERY ILL APPEARING AND TACHYPNEIC. O2 SATURATION HAS MAINTAINED 90-94% ON 6 L NC. PERICARDIAL DRAIN NOTED. NO DRAINAGE SINCE YESTERDAY MORNING. LUNG SOUNDS HAVE SCATTERED WHEEZES/RHONCHI. ABDOMEN SOFT/NON TENDER WITH HYPOACTIVE BOWEL SOUNDS. WILL CONTINUE TO MONITOR.
[2022-05-06 13:11] LABS: Glucose, Body Fluid <2 mg/dL (.); LD, Body Fluid 1176 IU/L (.); Protein, Body Fluid 4.7 g/dL (.)
--- NOTE | 2022-05-06 15:39 | CARE MANAGER ---
I met with patient's aunt and guardian, Siobhan this morning to discuss discharge planning. Siobhan is requesting that patient go to [facility]. Referral was faxed ([phone]), and I spoke with Valeriy @ [phone]. Awaiting decision. [facility] not able [facility], patient will require a middle or intermediate school principal bed at [facility] with hospice.
--- NOTE | 2022-05-06 17:23 | PC.NURSE ---
RADIOLOGY NOTIFIED PT'S GUARDIAN FOR PERMISSION TO DO PT'S MRI. PT'S AUNT WAS TRANSFERRED OVER TO AR AND SHE STATED SHE DID NOT FEEL IT WAS NECESSARY TO DO THE MRI B/C PT'S GUARDIAN AND CONSIDERING OTHER SCANS HAVE SHOWED METASTATIC DISEASE THEY WISH TO KEEP PT COMFORTABLE AND DO NOT WANT TO PUT PT THROUGH ANY KIND OF CHEMO OR RADIATION. NOTIFIED RONNY AND HE STATED HE WOULD DISCUSSION WITH PT'S AUNT TOMORROW. MRI WAS CANCELLED FOR TODAY.
--- NOTE | 2022-05-06 22:11 | PC.NURSE ---
RT notified of sputum specimen that needs to be collected.
[2022-05-07] VITALS (12 sets, daily range): BP systolic 106–126; BP diastolic 50–77; PULSE 81–117; RESP 18–22; TEMP 36.3–36.9; O2SAT 90–96; BMI 19.8
--- NOTE | 2022-05-07 06:10 | PC.NURSE ---
Pt rested well this shift. Dressing from pericardial drain site on chest is C/D/I. Pt voiced no complaints of pain or SOA this shift. Pt remains on 4L NC with O2 sats 92-96%. Lung sounds have scattered wheezing and rhonchi. Bed alarm on for safety.
[2022-05-07 07:08] LABS: Hematocrit 35.2 % (42.0-52.0); Hemoglobin 11.9 g/dL (14.1-18.0); Lymphocytes # 0.3 K/mm3 (0.7-4.5); Lymphocytes % 1.6 % (10-50); Mean Corpuscular HGB Conc 33.8 g/dL (31.8-35.4); Mean Corpuscular Hemoglobin 30.7 pg (27.0-31.2); Mean Corpuscular Volume 90.7 fl (80-94); Mean Platelet Volume 7.6 fl (7.4-10.4); Monocytes # 0.9 K/mm3 (0.1-1.0); Monocytes % 4.7 % (1.7-9.3); Neutrophils # 17.5 K/mm3 (1.8-7.8); Neutrophils % 93.7 % (37.0-80.0); Platelet Count 268 K/mm3 (142-424); Red Blood Count 3.87 M/mm3 (4.60-6.20); Red Cell Distribution Width 13.4 % (11.5-17.5); White Blood Count 18.7 K/mm3 (4.8-10.8)
[2022-05-07 07:11] LABS: Chloride 105 mmol/L (98-107); Sodium 134 mmol/L (136-145)
[2022-05-07 07:12] LABS: Potassium 4.3 mmoL/L (3.5-5.1)
[2022-05-07 07:14] LABS: Blood Urea Nitrogen 32 mg/dl (9-20); Creatinine Clearance Estimated 80 mL/min (50-200); Estimated Glomerular Filt Rate 78 ml/min (>60); GFR (African American) 94 ML/MIN (>60); MANUAL DIFFERENTIAL MANUAL DIFFERENTIAL (MANUAL DIFF)
[2022-05-07 07:15] LABS: Anion Gap 5.3 mEq/L (5-15); Calcium 8.7 mg/dl (8.4-10.2); Carbon Dioxide 28 mmol/L (22.0-30.0); Glucose 134 mg/dl (74-100)
[2022-05-07 07:42] LABS: Lymphocytes % 3 % (10-50); Monocytes % 4 % (2-9); Neutrophils % 93 % (42-76); Total Cells Counted 100
[2022-05-07 07:43] LABS: Platelet Estimate Normal; RBC Morphology Normal
--- NOTE | 2022-05-07 10:13 | HMH.ACPN2 ---
Internal Medicine - PN: Subj *Date: 05/07/22 *Time: 10:33 Interval history: 57-year-old male patient resting in bed quietly with eyes closed, awakens to verbal stimuli. Aunt is at bedside. Case management involved with discharging patient to inpatient hospice or extended care with hospice. Pericardial drain was removed yesterday dressing to abdomen clean/dry/intact Exam Vital signs and Labs for Last 24 Hours: Temp Pulse Resp BP Pulse Ox 98.5 F 104 H 22 116/75 91 L 05/07/22 07:38 05/07/22 07:38 05/07/22 07:38 05/07/22 07:38 05/07/22 07:38 Laboratory Results - last 24 hr 05/04/22 16:30: Fluid Glucose <2, Fluid Total Protein 4.7, Fluid LDH 1176 05/06/22 07:35: Total Counted 100, Neutrophils % (Manual) 96 H, Lymphocytes % (Manual) 1 L, Monocytes % (Manual) 2, Eosinophils % (Manual) 1, Platelet Estimate Normal, Acanthocytes (Spur) 1+ 05/07/22 06:40: WBC 18.7 H, RBC 3.87 L, Hgb 11.9 L, Hct 35.2 L, MCV 90.7, MCH 30.7, MCHC 33.8, RDW 13.4, Plt Count 268, MPV 7.6, Neut % (Auto) 93.7 H, Lymph % (Auto) 1.6 L, [place] % (Auto) 4.7, Eos % (Auto) 0.0 L, Baso % (Auto) 0.0 L, Neut # (Auto) 17.5 H, Lymph # (Auto) 0.3 L, [place] # (Auto) 0.9, Eos # (Auto) 0.0, Baso # (Auto) 0.0, Total Counted 100, Neutrophils % (Manual) 93 H, Lymphocytes % (Manual) 3 L, Monocytes % (Manual) 4, Platelet Estimate Normal, RBC Morphology Normal 05/07/22 06:40: Sodium 134 L, Potassium 4.3, Chloride 105, Carbon Dioxide 28, Anion Gap 5.3, BUN 32 H D, Creatinine 1.00 D, Estimated Creat Clear 80, Estimated GFR 78, Est GFR ( Amer) 94 D, Glucose 134 H, Calcium 8.7 I & O for Last 24 hours: Intake & Output 05/04/22 05/05/22 05/06/22 05/07/22 23:59 23:59 23:59 23:59 Intake Total 1040 / 1040 1440 / 1440 120 / 120 Output Total 2400 / 2400 950 / 950 150 / 150 Balance -1360 / -1360 490 / 490 -30 / -30 Weight 162 lb 1 oz 146 lb 15.715 oz 147 lb 149 lb 3 oz Microbiology Reports for the Last 24 Hours: Microbiology 05/04/22 13:23 Blood Blood Culture - Preliminary NO GROWTH AFTER 48 HOURS 05/04/22 13:23 Blood Blood Culture - Preliminary NO GROWTH AFTER 48 HOURS - Constitutional no acute distress, chronically ill appearing - *Routine HEENT Exam Head: Present: normocephalic Eye: Present: EOMI ENT: Present: mucous membranes moist - *Routine Neck Exam Present: trachea midline. Absent: tracheal deviation - *Routine Respiratory Exam Present: rhonchi, wheezes. Absent: accessory muscle use - *Routine Cardiovascular Exam Present: RRR - *Routine Abdominal Exam Present: soft, normoactive bowel sounds. Absent: tenderness, firm - *Routine Extremities Exam Present: full ROM, pulses intact. Absent: cyanosis, clubbing - *Routine Skin Exam Present: wounds Comments: Dressing to upper abdomen clean/dry/intact - *Routine Neurological Exam Present: alert, altered mental status. Absent: oriented X3 - Routine Psychiatric Exam Present: unable to assess Assessment and Plan (1) Pericardial effusion Status: Acute Category: Medical Code(s): I31.3 - Pericardial effusion (noninflammatory) (2) Elevated troponin Status: Acute Category: Medical Code(s): R77.8 - Other specified abnormalities of plasma proteins (3) Congestive heart failure Status: Acute Qualifiers: Heart failure type: diastolic Heart failure chronicity: acute Qualified Code(s): I50.31 - Acute diastolic (congestive) heart failure Category: Medical Code(s): I50.9 - Heart failure, unspecified (4) Community acquired pneumonia Status: Acute Qualifiers: Laterality: unspecified laterality Qualified Code(s): J18.9 - Pneumonia, unspecified organism Category: Medical Code(s): J18.9 - Pneumonia, unspecified organism (5) Severe sepsis with acute organ dysfunction Status: Acute Category: Medical Code(s): A41.9 - Sepsis, unspecified organism; R65.20 - Severe sepsis without s
--- NOTE | 2022-05-07 10:46 | PC.NURSE ---
morning rounds with md. patient asleep in bed, aunt at bedside. awaiting for hospice and decision about placement vs hospice care center. aunt has good understanding of what is going on. patient on 4l of o2 at that time. patient does not appear to be in any pain. aunt worried about patient being unable to express pain and educated on visual signs of pain. when to introduce pain medication and risks of it.
--- NOTE | 2022-05-07 10:57 | DIET.NUTRFU ---
Patient plans to discharge today or tomorrow to LTC facility with hospice. Prognosis is poor. Reviewed meal intake, he consumed 50% for lunch 05/06 and 100% for dinner but only 25% for breakfast today. He continues to receive ensure with meals, currently on low sodium diet- will liberalize to accommodate any preference during this time.
--- NOTE | 2022-05-07 14:19 | CARE MANAGER ---
Per Rachelle, patient is not appropriate for the [facility] in [place]. Referrals have been faxed to [facility], [facility], [facility] and [facility]. We have received a denial from [facility], and we are awaiting decision from other facilities.
--- NOTE | 2022-05-07 14:53 | PC.NURSE ---
afternoon round on patient he is resting in bed asleep. no signs of pain at that time
--- NOTE | 2022-05-07 19:46 | PC.NURSE ---
Pt remains on 4 L NC, resting comfortably at this time. Bed alarm on in use for safety. VSS.
[2022-05-08] VITALS (13 sets, daily range): BP systolic 102–127; BP diastolic 49–78; PULSE 95–111; RESP 17–21; TEMP 36.6–37.1; O2SAT 92–96; BMI 19.8
--- NOTE | 2022-05-08 03:20 | PC.NURSE ---
Patient has rested well. Patient remains on room air. He remains sinus tach on telemetry. No acute changes thus far.
[2022-05-08 08:26] LABS: Eosinophils # 0.1 K/mm3 (0.0-0.4); Eosinophils % 0.5 % (0.1-12.0); Hematocrit 36.6 % (42.0-52.0); Hemoglobin 12.5 g/dL (14.1-18.0); Lymphocytes # 0.3 K/mm3 (0.7-4.5); Lymphocytes % 1.2 % (10-50); Mean Corpuscular HGB Conc 34.2 g/dL (31.8-35.4); Mean Corpuscular Hemoglobin 31.6 pg (27.0-31.2); Mean Corpuscular Volume 92.3 fl (80-94); Mean Platelet Volume 7.5 fl (7.4-10.4); Monocytes # 0.6 K/mm3 (0.1-1.0); Monocytes % 3.2 % (1.7-9.3); Neutrophils # 18.7 K/mm3 (1.8-7.8); Platelet Count 243 K/mm3 (142-424); Red Blood Count 3.96 M/mm3 (4.60-6.20); Red Cell Distribution Width 13.3 % (11.5-17.5); White Blood Count 19.6 K/mm3 (4.8-10.8)
[2022-05-08 08:30] LABS: MANUAL DIFFERENTIAL MANUAL DIFFERENTIAL (MANUAL DIFF)
[2022-05-08 08:36] LABS: Blood Urea Nitrogen 29 mg/dl (9-20); Calcium 8.3 mg/dl (8.4-10.2); Carbon Dioxide 30 mmol/L (22.0-30.0); Chloride 103 mmol/L (98-107); Creatinine Clearance Estimated 114 mL/min (50-200); Estimated Glomerular Filt Rate 117 ml/min (>60); GFR (African American) 142 ML/MIN (>60); Glucose 158 mg/dl (74-100); Sodium 135 mmol/L (136-145)
--- NOTE | 2022-05-08 08:46 | PC.NURSE ---
patient repostion Patient needed pulled and their linens changed so I did that for them. [id number] 05/08/2022 Maria Barnhart SRNA
[2022-05-08 09:49] LABS: Lymphocytes % 1 % (10-50); Monocytes % 2 % (2-9); Neutrophils % 97 % (42-76); Total Cells Counted 100
[2022-05-08 09:51] LABS: Acanthocytes 1+; Platelet Estimate Normal
--- NOTE | 2022-05-08 12:43 | PC.NURSE ---
ROUNDED ON PATIENT. AUNT HAD ALREADY LEFT THE BEDSIDE. PATIENT SITTING UP IN BED ASLEEP. SEEMS TO BE RESTING COMFORTABLY.
--- NOTE | 2022-05-08 13:20 | HMH.ACPN2 ---
Internal Medicine - PN: Subj *Date: 05/08/22 *Time: 08:20 Interval history: 57-year-old male patient resting in bed quietly, O2 saturation 94% on 2 L per nasal cannula. Aunt is in room, all questions answered. Case management still working on placement with hospice Exam Vital signs and Labs for Last 24 Hours: Temp Pulse Resp BP Pulse Ox 98.1 F 110 H 17 110/64 93 L 05/08/22 11:06 05/08/22 13:12 05/08/22 11:06 05/08/22 11:06 05/08/22 13:12 Laboratory Results - last 24 hr 05/08/22 08:05: WBC 19.6 H, RBC 3.96 L, Hgb 12.5 L, Hct 36.6 L, MCV 92.3, MCH 31.6 H, MCHC 34.2, RDW 13.3, Plt Count 243, MPV 7.5, Neut % (Auto) 95.0 H, Lymph % (Auto) 1.2 L, [place] % (Auto) 3.2, Eos % (Auto) 0.5, Baso % (Auto) 0.0 L, Neut # (Auto) 18.7 H, Lymph # (Auto) 0.3 L, [place] # (Auto) 0.6, Eos # (Auto) 0.1, Baso # (Auto) 0.0, Total Counted 100, Neutrophils % (Manual) 97 H, Lymphocytes % (Manual) 1 L, Monocytes % (Manual) 2, Platelet Estimate Normal, Acanthocytes (Spur) 1+ 05/08/22 08:05: Sodium 135 L, Potassium 5.0, Chloride 103, Carbon Dioxide 30, Anion Gap 7.0, BUN 29 H, Creatinine 0.70 D, Estimated Creat Clear 114, Estimated GFR 117, Est GFR ( Amer) 142 D, Glucose 158 H, Calcium 8.3 L I & O for Last 24 hours: Intake & Output 05/05/22 05/06/22 05/07/22 05/08/22 23:59 23:59 23:59 23:59 Intake Total 1040 / 1040 1440 / 1440 360 / 360 360 / 360 Output Total 2400 / 2400 950 / 950 150 / 550 400 / 400 Balance -1360 / -1360 490 / 490 210 / -190 -40 / -40 Weight 146 lb 15.715 oz 147 lb 149 lb 3 oz 149 lb 6.164 oz - Constitutional no acute distress, chronically ill appearing - *Routine HEENT Exam Head: Present: normocephalic Eye: Present: EOMI ENT: Present: mucous membranes moist - *Routine Neck Exam Present: trachea midline. Absent: tracheal deviation - *Routine Respiratory Exam Present: wheezes. Absent: accessory muscle use - *Routine Cardiovascular Exam Present: RRR - *Routine Abdominal Exam Present: soft, normoactive bowel sounds. Absent: tenderness, firm - *Routine Extremities Exam Present: full ROM, pulses intact. Absent: cyanosis, clubbing, edema - *Routine Skin Exam Present: intact, dry, warm. Absent: cyanosis, erythema - *Routine Neurological Exam Present: alert, altered mental status - Routine Psychiatric Exam Present: unable to assess Assessment and Plan (1) Pericardial effusion Status: Acute Category: Medical Code(s): I31.3 - Pericardial effusion (noninflammatory) (2) Elevated troponin Status: Acute Category: Medical Code(s): R77.8 - Other specified abnormalities of plasma proteins (3) Congestive heart failure Status: Acute Qualifiers: Heart failure type: diastolic Heart failure chronicity: acute Qualified Code(s): I50.31 - Acute diastolic (congestive) heart failure Category: Medical Code(s): I50.9 - Heart failure, unspecified (4) Community acquired pneumonia Status: Acute Qualifiers: Laterality: unspecified laterality Qualified Code(s): J18.9 - Pneumonia, unspecified organism Category: Medical Code(s): J18.9 - Pneumonia, unspecified organism (5) Severe sepsis with acute organ dysfunction Status: Acute Category: Medical Code(s): A41.9 - Sepsis, unspecified organism; R65.20 - Severe sepsis without septic shock - Assessment and plan all Dx Assessment and Plan for all problems:: Rounded with Dr. Merchant, all orders per Dr. Merchant: 1. Continue working on placement with hospice 2. We will schedule pain meds
--- NOTE | 2022-05-08 14:24 | CARE MANAGER ---
Addendum entered by Eli Weeks RN 05/08/22 16:18: Kathleen Henry from [facility] contacted us and states patient can go to the Hospice Care center at [facility] in [place] tomorrow. Contacted his aunt, Siobhan Zarate, and she is agreeable to this. Notified Dr. Merchant and nurse of the plan to discharge tomorrow. No COVID swab is required per Kathleen and per Abebe at the care center Dr. Merchant does not need to send any prescriptions we just need to make sure they get the discharge summary. Original Note: CM team has mass faxed patient's information to facilities in [facility], [facility], [place], [facility], [place], [facility], [facility], [facility], and [place]. We have also made several phone calls, but we have not had a bed offer at this time.
--- NOTE | 2022-05-08 15:56 | PC.NURSE ---
recvd call from Valeriy at [facility] unit for status update
--- NOTE | 2022-05-08 17:19 | PC.NURSE ---
patient has been provided with a new ice pitcher and trash has been taken out
--- NOTE | 2022-05-08 19:21 | HMH.DCSUM ---
General - General Admission date:: 05/04/22 Discharge date: 05/08/22 HPI HPI: 57-year-old male patient presents to the emergency room with his aunt from a local personal-intermediate. He reports patient has been short of breath all day. He also reports a weight loss over the last couple years, is unable to give a close approximation but just reports a loss of weight. Patient is a longtime smoker and has a history of congestive heart failure. Heart rate 112, white blood cell count 18.5, lactate 3.3, bilateral pneumonia On echocardiogram a pericardial effusion was revealed and a pericardial drain was placed there has been approximately 500 cc out from drain during the night, 57-year-old male patient sitting in bed resting quietly nasal cannula at 8 L, and is in room. He reports that he has lost a significant amount of weight in the last couple years she is unsure of the total amount. Patient reports he is a smoker but does not answer other questions appropriately Hospital Course Hospital Course: 57-year-old male patient presents to the emergency room with his aunt from a local personal[facility]inter[facility]. He reports patient has been short of breath all day. He also reports a weight loss over the last couple years, is unable to give a close approximation but just reports a loss of weight. Patient is a longtime smoker and has a history of congestive heart failure. Heart rate 112, white blood cell count 18.5, lactate 3.3, bilateral pneumonia On echocardiogram a pericardial effusion was revealed and a pericardial drain was placed there has been approximately 500 cc out from drain during the night, 57-year-old male patient sitting in bed resting quietly nasal cannula at 8 L, and is in room. He reports that he has lost a significant amount of weight in the last couple years she is unsure of the total amount. Patient reports he is a smoker but does not answer other questions appropriately 05/04/22 ECHO: Conclusion 1. Normal left ventricular size and function. 2. Large pericardial effusion with right ventricular diastolic collapse consistent with tamponade. Electronically signed by : Tl Mcmahon MD 05/04/22 Pericardiocentesis: TECHNIQUE The chest and abdominal area were sterilely prepped. Anesthesia provided conscious sedation and a large aspiration needle was placed using the subxiphoid approach and directed toward the left. The pericardial space was accessed and a wire was then advanced into the pericardial space. A dilator was used to open the track going from the skin into the pericardial space. The pigtail catheter was then advanced into the pericardium and the tubing was connected to a large gravity fed bag which extracted the bloody dark fluid. Immediately the size of the pericardial effusion decreased with immediate relaxation and improvement in right ventricular compression. At the end of the procedure the pigtail catheter was sutured in place using silk. IMPRESSION Successful pericardiocentesis for cardiac tamponade producing greater than 500 cc of bloody pericardial fluid with a large amount of fluid anticipated still remaining in the pericardial space PLAN 1. 1. Supportive care 2. 2. Submit pericardial fluid for cytology and chemical evaluation Electronically signed by : Omar Hansen MD 05/05/[address]: FINDINGS: There is no axillary adenopathy. There is no hilar adenopathy. There are multiple mildly enlarged mediastinal lymph nodes. Heart size is normal. There is a moderate pericardial effusion with a pericardial drain present. There are small bilateral pleural effusions, right greater than left. Limited images of the upper abdomen demonstrate bilateral adrenal gland enlargement favoring adenomas. On the lung window images, there are moderate changes of emphysema. There are bilateral pulmonary opacities, left greater than right, consistent with bilateral pneum
[2022-05-09] VITALS (7 sets, daily range): BP systolic 111–124; BP diastolic 60–72; PULSE 95–109; RESP 17–20; TEMP 36.6–36.7; O2SAT 91–97; BMI 19.9
--- NOTE | 2022-05-09 04:00 | PC.NURSE ---
Addendum entered by Kira Tyler RN 05/09/22 07:51: telemetry reveals sinus tach with hr 95-109 Original Note: pt has slept through the night, 0345 pain med held due to pt sleeping and denies any pain, pt has denied pain through the night, lung sounds noted with bilateral wheezing, o2 at 2L with o2 sats 92-94; no edema, pt alert and oriented x4; no other issues noted at this time. no changes from previous assessment
[2022-05-09 07:20] LABS: Basophils % 0.1 % (0.1-2.0); Eosinophils # 0.1 K/mm3 (0.0-0.4); Eosinophils % 0.2 % (0.1-12.0); Hematocrit 40.4 % (42.0-52.0); Hemoglobin 12.4 g/dL (14.1-18.0); Lymphocytes # 0.2 K/mm3 (0.7-4.5); Mean Corpuscular HGB Conc 30.6 g/dL (31.8-35.4); Mean Corpuscular Hemoglobin 30.5 pg (27.0-31.2); Mean Corpuscular Volume 99.6 fl (80-94); Mean Platelet Volume 8.7 fl (7.4-10.4); Monocytes # 0.7 K/mm3 (0.1-1.0); Monocytes % 3.3 % (1.7-9.3); Neutrophils # 20.9 K/mm3 (1.8-7.8); Neutrophils % 95.4 % (37.0-80.0); Platelet Count 216 K/mm3 (142-424); Red Blood Count 4.05 M/mm3 (4.60-6.20); Red Cell Distribution Width 13.8 % (11.5-17.5); White Blood Count 21.9 K/mm3 (4.8-10.8)
[2022-05-09 07:23] LABS: MANUAL DIFFERENTIAL MANUAL DIFFERENTIAL (MANUAL DIFF)
[2022-05-09 07:24] LABS: Blood Urea Nitrogen 26 mg/dl (9-20); Calcium 8.3 mg/dl (8.4-10.2); Carbon Dioxide 30 mmol/L (22.0-30.0); Chloride 102 mmol/L (98-107); Creatinine Clearance Estimated 101 mL/min (50-200); Estimated Glomerular Filt Rate 100 ml/min (>60); GFR (African American) 121 ML/MIN (>60); Glucose 113 mg/dl (74-100); Sodium 133 mmol/L (136-145)
--- NOTE | 2022-05-09 08:16 | HMH.ACPN ---
Internal Medicine - PN: Subj *Date: 05/09/22 *Time: 08:16 Exam Vital signs and Labs for Last 24 Hours: Temp Pulse Resp BP Pulse Ox 97.8 F 105 H 17 124/60 97 05/09/22 07:23 05/09/22 07:23 05/09/22 07:23 05/09/22 07:23 05/09/22 07:23 Laboratory Results - last 24 hr 05/08/22 08:05: WBC 19.6 H, RBC 3.96 L, Hgb 12.5 L, Hct 36.6 L, MCV 92.3, MCH 31.6 H, MCHC 34.2, RDW 13.3, Plt Count 243, MPV 7.5, Neut % (Auto) 95.0 H, Lymph % (Auto) 1.2 L, [place] % (Auto) 3.2, Eos % (Auto) 0.5, Baso % (Auto) 0.0 L, Neut # (Auto) 18.7 H, Lymph # (Auto) 0.3 L, [place] # (Auto) 0.6, Eos # (Auto) 0.1, Baso # (Auto) 0.0, Total Counted 100, Neutrophils % (Manual) 97 H, Lymphocytes % (Manual) 1 L, Monocytes % (Manual) 2, Platelet Estimate Normal, Acanthocytes (Spur) 1+ 05/08/22 08:05: Sodium 135 L, Potassium 5.0, Chloride 103, Carbon Dioxide 30, Anion Gap 7.0, BUN 29 H, Creatinine 0.70 D, Estimated Creat Clear 114, Estimated GFR 117, Est GFR ( Amer) 142 D, Glucose 158 H, Calcium 8.3 L 05/09/22 06:17: WBC 21.9 H*, RBC 4.05 L, Hgb 12.4 L, Hct 40.4 L, MCV 99.6 H, MCH 30.5, MCHC 30.6 L, RDW 13.8, Plt Count 216, MPV 8.7, Neut % (Auto) 95.4 H, Lymph % (Auto) 1.0 L, [place] % (Auto) 3.3, Eos % (Auto) 0.2, Baso % (Auto) 0.1, Neut # (Auto) 20.9 H, Lymph # (Auto) 0.2 L, [place] # (Auto) 0.7, Eos # (Auto) 0.1, Baso # (Auto) 0.0 05/09/22 06:17: Sodium 133 L, Potassium 5.0, Chloride 102, Carbon Dioxide 30, Anion Gap 6.0, BUN 26 H, Creatinine 0.80, Estimated Creat Clear 101, Estimated GFR 100, Est GFR ( Amer) 121, Glucose 113 H D, Calcium 8.3 L I & O for Last 24 hours: Intake & Output 05/06/22 05/07/22 05/08/22 05/09/22 23:59 23:59 23:59 23:59 Intake Total 1440 / 1440 360 / 360 840 / 960 480 / 480 Output Total 950 / 950 150 / 550 400 / 750 350 / 350 Balance 490 / 490 210 / -190 440 / 210 130 / 130 Weight 66.678 kg 67.67 kg 67.76 kg 68.13 kg Assessment and Plan (1) Pericardial effusion Status: Acute Category: Medical Code(s): I31.3 - Pericardial effusion (noninflammatory) (2) Elevated troponin Status: Acute Category: Medical Code(s): R77.8 - Other specified abnormalities of plasma proteins (3) Congestive heart failure Status: Acute Qualifiers: Heart failure type: diastolic Heart failure chronicity: acute Qualified Code(s): I50.31 - Acute diastolic (congestive) heart failure Category: Medical Code(s): I50.9 - Heart failure, unspecified (4) Community acquired pneumonia Status: Acute Qualifiers: Laterality: unspecified laterality Qualified Code(s): J18.9 - Pneumonia, unspecified organism Category: Medical Code(s): J18.9 - Pneumonia, unspecified organism (5) Severe sepsis with acute organ dysfunction Status: Acute Category: Medical Code(s): A41.9 - Sepsis, unspecified organism; R65.20 - Severe sepsis without septic shock (6) Primary adenocarcinoma of right lung Status: Acute Category: Medical Code(s): C34.91 - Malignant neoplasm of unspecified part of right bronchus or lung (7) Metastasis to bone Status: Acute Category: Medical Code(s): C79.51 - Secondary malignant neoplasm of bone The patient's infection will respond to the chosen ABx?: Yes Is the patient receiving the right drug, dose, and route?: Yes Could a more targeted ABx be ordered?: No
[2022-05-09 08:59] LABS: Lymphocytes % 1 % (10-50); Monocytes % 1 % (2-9); Neutrophils % 97 % (42-76); Platelet Estimate Normal; Total Cells Counted 100
[2022-05-09 09:00] LABS: Acanthocytes 1+
--- NOTE | 2022-05-09 09:08 | HMH.ACPN2 ---
Internal Medicine - PN: Subj *Date: 05/09/22 *Time: 09:08 Interval history: will be d/c to hospice today - pt with no new c/o stable exam - pain controlled Exam Vital signs and Labs for Last 24 Hours: Temp Pulse Resp BP Pulse Ox 97.8 F 105 H 17 124/60 97 05/09/22 07:23 05/09/22 07:23 05/09/22 07:23 05/09/22 07:23 05/09/22 07:23 Laboratory Results - last 24 hr 05/08/22 08:05: Total Counted 100, Neutrophils % (Manual) 97 H, Lymphocytes % (Manual) 1 L, Monocytes % (Manual) 2, Platelet Estimate Normal, Acanthocytes (Spur) 1+ 05/09/22 06:17: WBC 21.9 H*, RBC 4.05 L, Hgb 12.4 L, Hct 40.4 L, MCV 99.6 H, MCH 30.5, MCHC 30.6 L, RDW 13.8, Plt Count 216, MPV 8.7, Neut % (Auto) 95.4 H, Lymph % (Auto) 1.0 L, [place] % (Auto) 3.3, Eos % (Auto) 0.2, Baso % (Auto) 0.1, Neut # (Auto) 20.9 H, Lymph # (Auto) 0.2 L, [place] # (Auto) 0.7, Eos # (Auto) 0.1, Baso # (Auto) 0.0, Total Counted 100, Neutrophils % (Manual) 97 H, Band Neutrophils % 1.0, Lymphocytes % (Manual) 1 L, Monocytes % (Manual) 1 L, Platelet Estimate Normal, Acanthocytes (Spur) 1+ 05/09/22 06:17: Sodium 133 L, Potassium 5.0, Chloride 102, Carbon Dioxide 30, Anion Gap 6.0, BUN 26 H, Creatinine 0.80, Estimated Creat Clear 101, Estimated GFR 100, Est GFR ( Amer) 121, Glucose 113 H D, Calcium 8.3 L I & O for Last 24 hours: Intake & Output 05/06/22 05/07/22 05/08/22 05/09/22 11:59 11:59 11:59 11:59 Intake Total 960 / 960 1080 / 1080 600 / 600 960 / 960 Output Total 950 / 950 600 / 600 400 / 400 350 / 350 Balance 10 / 10 480 / 480 200 / 200 610 / 610 Weight 147 lb 149 lb 3 oz 149 lb 6.164 oz 150 lb 3.2 oz - Constitutional no acute distress, cachectic - *Routine HEENT Exam Head: Present: normocephalic Eye: Present: EOMI, PERRL. Absent: conjunctival icterus ENT: Present: mucous membranes dry - *Routine Neck Exam Absent: JVD - *Routine Respiratory Exam Present: decreased breath sounds - *Routine Cardiovascular Exam Present: RRR - *Routine Abdominal Exam Present: soft - *Routine Extremities Exam Absent: calf tenderness - *Routine Skin Exam Present: intact - *Routine Neurological Exam Present: alert, CN II-XII intact - Routine Psychiatric Exam Present: cooperative Assessment and Plan (1) Pericardial effusion Status: Acute Category: Medical Code(s): I31.3 - Pericardial effusion (noninflammatory) (2) Elevated troponin Status: Acute Category: Medical Code(s): R77.8 - Other specified abnormalities of plasma proteins (3) Congestive heart failure Status: Acute Qualifiers: Heart failure type: diastolic Heart failure chronicity: acute Qualified Code(s): I50.31 - Acute diastolic (congestive) heart failure Category: Medical Code(s): I50.9 - Heart failure, unspecified (4) Community acquired pneumonia Status: Acute Qualifiers: Laterality: unspecified laterality Qualified Code(s): J18.9 - Pneumonia, unspecified organism Category: Medical Code(s): J18.9 - Pneumonia, unspecified organism (5) Severe sepsis with acute organ dysfunction Status: Acute Category: Medical Code(s): A41.9 - Sepsis, unspecified organism; R65.20 - Severe sepsis without septic shock (6) Primary adenocarcinoma of right lung Status: Acute Category: Medical Code(s): C34.91 - Malignant neoplasm of unspecified part of right bronchus or lung (7) Metastasis to bone Status: Acute Category: Medical Code(s): C79.51 - Secondary malignant neoplasm of bone
--- NOTE | 2022-05-09 11:01 | PC.NURSE ---
Called and spoke with Magraret RODRIGUES. She is going to call and have the nurse getting the pt call me back to get report
--- NOTE | 2022-05-09 11:45 | PC.NURSE ---
Called report to Leyla RODRIGUES
--- NOTE | 2022-05-09 12:09 | PC.NURSE ---
Called EMS no answer
--- NOTE | 2022-05-09 12:09 | PC.NURSE ---
Called Aunt to give update to where pt is going. Will call once pt leaves.
--- NOTE | 2022-05-09 12:56 | PC.NURSE ---
Spoke with EMS they are aware pt is ready they will be here as soon as the the truck gets back from the run its on.
--- NOTE | 2022-05-09 14:33 | PC.NURSE ---
Called Aunt to let her know they just left.
== END 2022-05-09 14:33 | disposition hospice, inpatient (51) | DRG 180 ==
LOC: ER 14:39 → 2ND 15:12
PROVIDERS: Internal Medicine; Nurse Practitioner Family; Admitting Provider Emergency Medicine; Emergency Provider Emergency Medicine; Visit Provider Emergency Medicine
DX: C34.91 Malignant neoplasm of unspecified part of right bronchus or lung (principal); I50.31 Acute diastolic (congestive) heart failure; J18.9 Pneumonia, unspecified organism; J96.01 Acute respiratory failure with hypoxia; I31.3 Pericardial effusion (noninflammatory); S26.90XA Unspecified injury of heart, unspecified with or without hemopericardium, initial encounter; C79.51 Secondary malignant neoplasm of bone; F17.210 Nicotine dependence, cigarettes, uncomplicated; E78.5 Hyperlipidemia, unspecified; R77.8 Other specified abnormalities of plasma proteins; F20.9 Schizophrenia, unspecified
CPT/HCPCS: 33010; 33017; 36415; 70450; 71045; 71250; 72125; 72128; 72131; 74176; 80048; 80053; 82803; 82945; 83605; 83615; 83880; 84155; 84484; 85007; 85025; 85610; 85730; 87040; 88112; 88305; 88342; 93005; 93306; 93308; 94640; 94761; 99285; G0103; C1725; C9803; J1956; U0003; U0005